=== PATIENT | female | born 1965 | race Caucasian/White ===

== ENCOUNTER 2022-02-18 14:43 | Inpatient (IN) ==
[2022-02-18] MEDS ORDERED: ONDANSETRON 4 MG/2 ML VIAL IV PRN (16:23)
[2022-02-18] MEDS ORDERED: GLUCAGON 1 MG VIAL IM PRN (16:23)
[2022-02-18] MEDS ORDERED: ACETAMINOPHEN 325 MG TABLET PO PRN (16:23)
[2022-02-18] MEDS ORDERED: DEXTROSE 10% 250 ML BAG IV PRN (16:34)
[2022-02-18] MEDS: SODIUM CHLORIDE 0.9% 1,000 ML IV SCH (16:45)
[2022-02-18 16:49] LABS: Hematocrit 30.6 VOL% (35.7-47.0); Hemoglobin 10.9 GM/DL (12.0-16.0); Immature Granulocytes Absolute 0.02 #; Lymphocytes # 0.4 10*3/uL (1.4-4.0); Lymphocytes % 57.6 % (21.3-54.2); Mean Corpuscular HGB Conc 35.6 GM/DL (32-36); Mean Corpuscular Volume 94.2 FL (87-102); Mean Platelet Volume 9.9 FL (9.6-12.0); Monocytes # 0.2 10*3/uL (0.11-0.8); Monocytes % 36.4 % (1.7-12.7); NRBC # 0.12 10*3/uL; Platelet Count 203 T/CUMM (130-400); Red Blood Count 3.25 MC/CUMM (3.8-5.5); Red Cell Distribution Width 18.4 % (9.3-17.3)
[2022-02-18 16:52] LABS: White Blood Count 0.7 T/CUMM (4-12)
[2022-02-18] MEDS: MORPHINE 2 MG/1 ML SYRINGE IV PRN ×2 (17:03→20:58)
[2022-02-18 17:34] LABS: Albumin 1.4 G/DL (3.4-5.0); Bilirubin,Total 9.1 MG/DL (0.20-1.00); Calcium 7.1 MG/DL (8.5-10.1); Osmolality,Calculated 258.9 MOS/KG (273-304); Potassium 4.4 MMOL/L (3.5-5.1)
[2022-02-18] MEDS: INSULIN LISPRO 100 UNIT/ML SUBCUT SCH ×2 (17:54→20:59)
[2022-02-18 18:13] LABS: Lymphocytes 90 % (20-55); Nucleated Red Blood Cells 5 /100 WBC (0-5); Total Cells Counted 100
[2022-02-18 18:14] LABS: Platelet Estimate Normal; Poikilocytosis 1+
[2022-02-18 18:15] LABS: Anisocytosis 1+
[2022-02-18 18:16] LABS: Polychromasia 1+; Target Cells 1+
[2022-02-18] MEDS: PHENOL 1.4% THROAT SPRAY 177 ML BOTTLE PO PRN (19:10)
[2022-02-18] MEDS: ENOXAPARIN 40 MG/0.4 ML SYRINGE SUBCUT SCH (20:54)
[2022-02-18] MEDS ORDERED: DOCUSATE SODIUM 100 MG CAPSULE PO SCH (21:00)
[2022-02-18] MEDS: FILGRASTIM-SNDZ 300 MCG/0.5 ML SYRINGE SUBCUT SCH (21:19)
[2022-02-19] MEDS: SODIUM CHLORIDE 0.9% 1,000 ML IV SCH ×2 (00:17→08:17)
[2022-02-19 02:44] LABS: Bacteria,Urine Occasional /HPF (Few); Mucus,Urine Many /LPF (Occasional); RBC,Urine 1 /HPF (0-4); Squamous Epithelial Cell,Urine Occasional /HPF (0-10); Urine Appearance Clear (Clear); Urine Color Yellow (Yellow); Urine Specific Gravity 1.025 (1.001-1.035); Urine pH 5.5 (4.5-8.0)
[2022-02-19 02:45] LABS: Bilirubin,Urine Large mg/dL (Negative); Blood, Urine Negative (Negative); Glucose,Urine (UA) 100 mg/dL (Negative); Ketones,Urine 15 mg/dL (Negative); Nitrite,Urine Negative (Negative); Protein,Urine Trace mg/dL (Negative); Urine Urobilinogen 0.2 eU/dL (<2.0)
[2022-02-19 04:02] LABS: Basophils % 0.9 % (0.0-0.8); Hematocrit 28.3 VOL% (35.7-47.0); Hemoglobin 9.9 GM/DL (12.0-16.0); Immature Granulocytes Absolute 0.08 #; Lymphocytes # 0.5 10*3/uL (1.4-4.0); Mean Corpuscular Volume 95.6 FL (87-102); Mean Platelet Volume 10.5 FL (9.6-12.0); Monocytes # 0.5 10*3/uL (0.11-0.8); Monocytes % 43.5 % (1.7-12.7); NRBC # 0.32 10*3/uL; Neutrophils % 1.6 % (38.7-73.9); Platelet Count 221 T/CUMM (130-400); Red Blood Count 2.96 MC/CUMM (3.8-5.5); Red Cell Distribution Width 18.9 % (9.3-17.3); White Blood Count 1.2 T/CUMM (4-12)
[2022-02-19 04:17] LABS: Albumin 1.2 G/DL (3.4-5.0); Bilirubin,Total 7.4 MG/DL (0.20-1.00); Calcium 7.1 MG/DL (8.5-10.1); Osmolality,Calculated 258.8 MOS/KG (273-304); Potassium 4.2 MMOL/L (3.5-5.1); Total Protein 4.4 G/DL (6.4-8.2)
[2022-02-19] MEDS: MORPHINE 2 MG/1 ML SYRINGE IV PRN ×6 (04:36→23:47)
[2022-02-19 04:55] LABS: Lymphocytes 71 % (20-55); Nucleated Red Blood Cells 33 /100 WBC (0-5); Platelet Estimate Adequate; Total Cells Counted 100
[2022-02-19 04:57] LABS: Atypical Lymphocytes 1+
[2022-02-19 04:58] LABS: Macrocytosis Slight; Polychromasia Slight; Target Cells Slight
[2022-02-19] MEDS: INSULIN LISPRO 100 UNIT/ML SUBCUT SCH ×4 (07:29→20:41)
[2022-02-19] MEDS: FILGRASTIM-SNDZ 300 MCG/0.5 ML SYRINGE SUBCUT SCH ×2 (08:30→08:54)
[2022-02-19] MEDS: CEFEPIME 1,000 MG in SODIUM CHLORIDE 0.9% 100 ML IV SCH ×3 (08:30→20:38)
[2022-02-19] MEDS ORDERED: ALPELISIB PO SCH (09:00)
[2022-02-19] MEDS: FLUCONAZOLE INJ 200 MG/100 ML PREMIX IV SCH (09:15)
[2022-02-19] MEDS: DEXTROSE 5% NACL 0.9% 1,000 ML IV SCH ×2 (09:50→18:03)
[2022-02-19] MEDS: ENOXAPARIN 40 MG/0.4 ML SYRINGE SUBCUT SCH (20:39)
[2022-02-20] MEDS: CEFEPIME 1,000 MG in SODIUM CHLORIDE 0.9% 100 ML IV SCH ×4 (02:05→20:51)
[2022-02-20] MEDS: DEXTROSE 5% NACL 0.9% 1,000 ML IV SCH ×3 (02:05→17:24)
[2022-02-20] MEDS: MORPHINE 2 MG/1 ML SYRINGE IV PRN ×3 (03:46→17:29)
[2022-02-20] MEDS ORDERED: MYLANTA/LIDO VISC 2:1 300 ML BOTTLE SWISH/SWAL PRN (03:53)
[2022-02-20] MEDS ORDERED: HYDROmorphone 1 MG/1 ML SYRINGE IV PRN (04:06)
[2022-02-20 04:30] LABS: Basophils % 1.2 % (0.0-0.8); Eosinophils % 0.3 % (0.00-10.9); Hematocrit 27.1 VOL% (35.7-47.0); Hemoglobin 9.4 GM/DL (12.0-16.0); Immature Granulocytes % 13.3 %; Immature Granulocytes Absolute 0.46 #; Lymphocytes # 0.9 10*3/uL (1.4-4.0); Lymphocytes % 25.4 % (21.3-54.2); Mean Corpuscular HGB Conc 34.7 GM/DL (32-36); Mean Corpuscular Volume 96.8 FL (87-102); Mean Platelet Volume 10.1 FL (9.6-12.0); Monocytes # 1.3 10*3/uL (0.11-0.8); Monocytes % 36.7 % (1.7-12.7); NRBC # 1.33 10*3/uL; Neutrophils % 23.1 % (38.7-73.9); Platelet Count 187 T/CUMM (130-400); Red Cell Distribution Width 19.4 % (9.3-17.3); White Blood Count 3.5 T/CUMM (4-12)
[2022-02-20 04:55] LABS: Bilirubin,Total 7.1 MG/DL (0.20-1.00); Osmolality,Calculated 271.2 MOS/KG (273-304); Potassium 4.1 MMOL/L (3.5-5.1)
[2022-02-20 04:58] LABS: Atypical Lymphocytes 1+; Band Neutrophils 4 % (0-10); Eosinophils 1 % (0-10); Lymphocytes 58 % (20-55); Myelocytes 2 %; Nucleated Red Blood Cells 79 /100 WBC (0-5); Total Cells Counted 100
[2022-02-20 04:59] LABS: Platelet Estimate Adequate
[2022-02-20 05:01] LABS: Target Cells Slight
[2022-02-20] MEDS: INSULIN LISPRO 100 UNIT/ML SUBCUT SCH ×4 (08:34→23:54)
[2022-02-20] MEDS: FILGRASTIM-SNDZ 300 MCG/0.5 ML SYRINGE SUBCUT SCH ×2 (08:35→09:32)
[2022-02-20] MEDS: HYDROmorphone 1 MG/1 ML SYRINGE IV PRN ×2 (08:36→20:58)
[2022-02-20] MEDS: FLUCONAZOLE INJ 200 MG/100 ML PREMIX IV SCH (09:32)
[2022-02-20] MEDS: ENOXAPARIN 40 MG/0.4 ML SYRINGE SUBCUT SCH (20:51)
[2022-02-21] MEDS: CEFEPIME 1,000 MG in SODIUM CHLORIDE 0.9% 100 ML IV SCH (04:41)
[2022-02-21 05:09] LABS: Basophils % 0.2 % (0.0-0.8); Eosinophils % 0.1 % (0.00-10.9); Hematocrit 29.7 VOL% (35.7-47.0); Hemoglobin 9.8 GM/DL (12.0-16.0); Immature Granulocytes % 17.2 %; Immature Granulocytes Absolute 2.91 #; Lymphocytes # 1.8 10*3/uL (1.4-4.0); Lymphocytes % 10.3 % (21.3-54.2); Mean Corpuscular Volume 100.7 FL (87-102); Monocytes # 2.2 10*3/uL (0.11-0.8); Monocytes % 13.2 % (1.7-12.7); NRBC # 3.06 10*3/uL; Platelet Count 171 T/CUMM (130-400); Red Blood Count 2.95 MC/CUMM (3.8-5.5); Red Cell Distribution Width 20.4 % (9.3-17.3); White Blood Count 16.9 T/CUMM (4-12)
[2022-02-21 05:28] LABS: Albumin 0.9 G/DL (3.4-5.0); Bilirubin,Total 7.8 MG/DL (0.20-1.00); Calcium 6.4 MG/DL (8.5-10.1); Osmolality,Calculated 281.4 MOS/KG (273-304); Potassium 4.2 MMOL/L (3.5-5.1); Total Protein 3.8 G/DL (6.4-8.2)
[2022-02-21 05:31] LABS: Calcium 6.8 MG/DL (8.5-10.1); Osmolality,Calculated 280.5 MOS/KG (273-304); Potassium 4.3 MMOL/L (3.5-5.1)
[2022-02-21 05:34] LABS: Band Neutrophils 13 % (0-10); Lymphocytes 16 % (20-55); Metamyelocytes 3 %; Myelocytes 11 %; Nucleated Red Blood Cells 37 /100 WBC (0-5); Platelet Estimate Adequate; Total Cells Counted 100
[2022-02-21 05:35] LABS: Atypical Lymphocytes Few; Macrocytosis Slight; Polychromasia Slight
[2022-02-21] MEDS: DEXTROSE 5% NACL 0.9% 1,000 ML IV SCH ×3 (06:14→17:57)
[2022-02-21] MEDS: INSULIN LISPRO 100 UNIT/ML SUBCUT SCH ×4 (08:56→21:08)
[2022-02-21] MEDS: FLUCONAZOLE INJ 200 MG/100 ML PREMIX IV SCH (08:57)
[2022-02-21] MEDS: HYDROmorphone 1 MG/1 ML SYRINGE IV PRN ×3 (08:59→16:32)
[2022-02-21] MEDS: ENOXAPARIN 40 MG/0.4 ML SYRINGE SUBCUT SCH (21:09)
[2022-02-21] MEDS: MORPHINE 2 MG/1 ML SYRINGE IV PRN (21:09)
[2022-02-22] MEDS: DEXTROSE 5% NACL 0.9% 1,000 ML IV SCH ×4 (02:00→20:08)
[2022-02-22] MEDS: HYDROmorphone 1 MG/1 ML SYRINGE IV PRN ×3 (02:30→23:54)
[2022-02-22 05:20] LABS: Basophils # 0.1 10*3/uL (0.0-0.2); Basophils % 0.2 % (0.0-0.8); Eosinophils % 0.1 % (0.00-10.9); Hematocrit 30.4 VOL% (35.7-47.0); Hemoglobin 9.9 GM/DL (12.0-16.0); Immature Granulocytes % 14.8 %; Immature Granulocytes Absolute 4.57 #; Lymphocytes # 2.4 10*3/uL (1.4-4.0); Lymphocytes % 7.7 % (21.3-54.2); Mean Corpuscular HGB Conc 32.6 GM/DL (32-36); Mean Corpuscular Volume 100.7 FL (87-102); Mean Platelet Volume 11.8 FL (9.6-12.0); Monocytes # 3.4 10*3/uL (0.11-0.8); NRBC # 2.55 10*3/uL; Neutrophils % 66.2 % (38.7-73.9); Platelet Count 134 T/CUMM (130-400); Red Blood Count 3.02 MC/CUMM (3.8-5.5); Red Cell Distribution Width 20.7 % (9.3-17.3)
[2022-02-22 05:35] LABS: Calcium 7.2 MG/DL (8.5-10.1); Osmolality,Calculated 285.3 MOS/KG (273-304); Potassium 4.8 MMOL/L (3.5-5.1)
[2022-02-22 05:49] LABS: Lymphocytes 50 % (20-55); Nucleated Red Blood Cells 7 /100 WBC (0-5); Platelet Estimate Normal; Reactive Lymphocytes 2+; Total Cells Counted 100
[2022-02-22 06:05] LABS: Bilirubin,Total 7.8 MG/DL (0.20-1.00); Calcium 6.7 MG/DL (8.5-10.1); Potassium 4.8 MMOL/L (3.5-5.1); Total Protein 3.6 G/DL (6.4-8.2)
[2022-02-22] MEDS: MORPHINE 2 MG/1 ML SYRINGE IV PRN ×3 (06:08→16:20)
[2022-02-22] MEDS: INSULIN LISPRO 100 UNIT/ML SUBCUT SCH ×4 (08:10→20:00)
[2022-02-22] MEDS: FLUCONAZOLE INJ 200 MG/100 ML PREMIX IV SCH (08:56)
[2022-02-22] MEDS: ENOXAPARIN 40 MG/0.4 ML SYRINGE SUBCUT SCH (20:09)
[2022-02-23] MEDS: DEXTROSE 5% NACL 0.9% 1,000 ML IV SCH ×2 (03:58→17:39)
[2022-02-23] MEDS: MORPHINE 2 MG/1 ML SYRINGE IV PRN (04:36)
[2022-02-23 05:39] LABS: Basophils # 0.1 10*3/uL (0.0-0.2); Basophils % 0.1 % (0.0-0.8); Hemoglobin 10.2 GM/DL (12.0-16.0); Immature Granulocytes % 18.5 %; Immature Granulocytes Absolute 7.72 #; Lymphocytes # 2.7 10*3/uL (1.4-4.0); Lymphocytes % 6.6 % (21.3-54.2); Mean Corpuscular HGB Conc 32.9 GM/DL (32-36); Mean Corpuscular Volume 99.7 FL (87-102); Mean Platelet Volume 11.4 FL (9.6-12.0); Monocytes # 3.8 10*3/uL (0.11-0.8); Monocytes % 9.2 % (1.7-12.7); NRBC # 2.18 10*3/uL; Neutrophils % 65.6 % (38.7-73.9); Platelet Count 114 T/CUMM (130-400); Red Blood Count 3.11 MC/CUMM (3.8-5.5)
[2022-02-23 05:41] LABS: White Blood Count 41.7 T/CUMM (4-12)
[2022-02-23 06:01] LABS: Calcium 7.2 MG/DL (8.5-10.1); Osmolality,Calculated 290.1 MOS/KG (273-304); Potassium 4.2 MMOL/L (3.5-5.1)
[2022-02-23 06:16] LABS: Albumin 0.9 G/DL (3.4-5.0); Bilirubin,Total 7.8 MG/DL (0.20-1.00); Calcium 7.1 MG/DL (8.5-10.1); Osmolality,Calculated 288.3 MOS/KG (273-304); Potassium 4.2 MMOL/L (3.5-5.1); Total Protein 4.1 G/DL (6.4-8.2)
[2022-02-23 06:43] LABS: Lymphocytes 27 % (20-55); Nucleated Red Blood Cells 8 /100 WBC (0-5); Platelet Estimate Normal; Total Cells Counted 100
[2022-02-23] MEDS: HYDROmorphone 1 MG/1 ML SYRINGE IV PRN ×2 (08:37→20:40)
[2022-02-23] MEDS: INSULIN LISPRO 100 UNIT/ML SUBCUT SCH ×4 (08:37→20:40)
[2022-02-23] MEDS: FLUCONAZOLE INJ 200 MG/100 ML PREMIX IV SCH (08:38)
[2022-02-23] MEDS: ENOXAPARIN 40 MG/0.4 ML SYRINGE SUBCUT SCH (20:40)
[2022-02-24] MEDS: HYDROmorphone 1 MG/1 ML SYRINGE IV PRN (05:20)
[2022-02-24 05:51] LABS: Basophils # 0.1 10*3/uL (0.0-0.2); Basophils % 0.1 % (0.0-0.8); Hematocrit 31.5 VOL% (35.7-47.0); Hemoglobin 10.4 GM/DL (12.0-16.0); Immature Granulocytes % 21.6 %; Lymphocytes % 6.6 % (21.3-54.2); Mean Corpuscular Volume 99.4 FL (87-102); Monocytes # 3.3 10*3/uL (0.11-0.8); Monocytes % 7.4 % (1.7-12.7); Neutrophils % 64.3 % (38.7-73.9); Platelet Count 98 T/CUMM (130-400); Red Blood Count 3.17 MC/CUMM (3.8-5.5); Red Cell Distribution Width 21.2 % (9.3-17.3)
[2022-02-24 06:14] LABS: Bilirubin,Total 7.8 MG/DL (0.20-1.00); Calcium 7.1 MG/DL (8.5-10.1); Potassium 4.8 MMOL/L (3.5-5.1); Total Protein 4.1 G/DL (6.4-8.2)
[2022-02-24 06:34] LABS: Lymphocytes 29 % (20-55); Metamyelocytes 1 %; Myelocytes 5 %; Nucleated Red Blood Cells 2 /100 WBC (0-5); Total Cells Counted 100
[2022-02-24 06:35] LABS: Platelet Estimate Decreased
[2022-02-24] MEDS: DEXTROSE 5% NACL 0.45% 1,000 ML IV SCH ×2 (08:38→16:28)
[2022-02-24] MEDS: MORPHINE 2 MG/1 ML SYRINGE IV PRN (08:38)
[2022-02-24] MEDS: INSULIN LISPRO 100 UNIT/ML SUBCUT SCH ×4 (08:39→20:37)
[2022-02-24] MEDS: FLUCONAZOLE INJ 200 MG/100 ML PREMIX IV SCH (12:09)
[2022-02-24] MEDS: ceFAZolin 2,000 MG/50 ML DUPLEX IV SCH (17:52)
[2022-02-24] MEDS: ENOXAPARIN 40 MG/0.4 ML SYRINGE SUBCUT SCH (20:41)
[2022-02-25] MEDS: ceFAZolin 2,000 MG/50 ML DUPLEX IV SCH ×4 (00:29→09:05)
[2022-02-25] MEDS: MORPHINE 2 MG/1 ML SYRINGE IV PRN (01:10)
[2022-02-25 06:00] LABS: Basophils # 0.1 10*3/uL (0.0-0.2); Basophils % 0.1 % (0.0-0.8); Eosinophils # 0.1 10*3/uL (0.0-0.87); Eosinophils % 0.1 % (0.00-10.9); Hematocrit 29.8 VOL% (35.7-47.0); Hemoglobin 10.1 GM/DL (12.0-16.0); Immature Granulocytes % 24.2 %; Immature Granulocytes Absolute 12.31 #; Lymphocytes # 3.8 10*3/uL (1.4-4.0); Lymphocytes % 7.5 % (21.3-54.2); Mean Corpuscular HGB Conc 33.9 GM/DL (32-36); Mean Corpuscular Volume 98.3 FL (87-102); Mean Platelet Volume 11.3 FL (9.6-12.0); Monocytes # 2.9 10*3/uL (0.11-0.8); Monocytes % 5.6 % (1.7-12.7); NRBC # 3.21 10*3/uL; Neutrophils % 62.5 % (38.7-73.9); Platelet Count 100 T/CUMM (130-400); Red Blood Count 3.03 MC/CUMM (3.8-5.5); Red Cell Distribution Width 21.4 % (9.3-17.3)
[2022-02-25 06:15] LABS: Bilirubin,Total 7.7 MG/DL (0.20-1.00); Calcium 7.3 MG/DL (8.5-10.1); Osmolality,Calculated 295.1 MOS/KG (273-304); Potassium 4.5 MMOL/L (3.5-5.1)
[2022-02-25 06:22] LABS: Band Neutrophils 3 % (0-10); Lymphocytes 5 % (20-55); Myelocytes 6 %; Nucleated Red Blood Cells 10 /100 WBC (0-5); Total Cells Counted 100
[2022-02-25] MEDS: INSULIN LISPRO 100 UNIT/ML SUBCUT SCH (07:51)
[2022-02-25] MEDS: PHENOL 1.4% THROAT SPRAY 177 ML BOTTLE PO PRN (09:01)
[2022-02-25] MEDS: FLUCONAZOLE INJ 200 MG/100 ML PREMIX IV SCH (09:05)
[2022-02-25] MEDS: HYDROmorphone 1 MG/1 ML SYRINGE IV PRN (09:12)
[2022-02-25] MEDS ORDERED: CLOTRIMAZOLE 10 MG TROCHE PO SCH (10:00)
[2022-02-25 11:01] VITALS: BP 106/72
== END 2022-02-25 10:08 | disposition home health service (06) | DRG 809 ==
LOC: N.2W → SUATTDRO 15:07 → N.TELES 02-23 15:53
PROVIDERS: ADMIT Internal Medicine; ATTEND Internal Medicine Geriatric Medicine

== ENCOUNTER 2022-02-26 19:06 | Inpatient (IN) ==
[2022-02-26] MEDS ORDERED: SODIUM CHLORIDE 0.9% 1,000 ML IV STA ×2 (19:37→20:54)
[2022-02-26 20:31] LABS: Basophils # 0.1 10*3/uL (0.0-0.2); Basophils % 0.2 % (0.0-0.8); Hematocrit 31.1 VOL% (35.7-47.0); Hemoglobin 10.4 GM/DL (12.0-16.0); Immature Granulocytes Absolute 8.54 #; Lymphocytes # 3.6 10*3/uL (1.4-4.0); Lymphocytes % 7.2 % (21.3-54.2); Mean Corpuscular HGB Conc 33.4 GM/DL (32-36); Monocytes # 2.1 10*3/uL (0.11-0.8); Monocytes % 4.1 % (1.7-12.7); NRBC # 5.98 10*3/uL; Neutrophils % 71.5 % (38.7-73.9); Platelet Count 137 T/CUMM (130-400); Red Blood Count 3.14 MC/CUMM (3.8-5.5); Red Cell Distribution Width 22.2 % (9.3-17.3)
[2022-02-26 20:33] LABS: White Blood Count 50.2 T/CUMM (4-12)
[2022-02-26] MEDS ORDERED: NOREPINEPHRINE 8 MG in SODIUM CHLORIDE 0.9% 242 ML IV PRN (20:43)
[2022-02-26 20:47] LABS: Ammonia < 10 UMOL/L (11-32)
[2022-02-26] MEDS ORDERED: NOREPINEPHRINE 4 MG/4 ML VIAL IV ONE (20:47)
[2022-02-26 20:50] LABS: Urine Color Amber (Yellow)
[2022-02-26 20:51] LABS: INR 2.8; PT Patient Result 28.7 SECS (10.1-12.1); Partial Thromboplastin Time 70.3 SECS (23.7-32.9)
[2022-02-26 20:51] LABS: Bilirubin,Urine Large mg/dL (Negative); Blood, Urine Trace mg/dL (Negative); Glucose,Urine (UA) 100 mg/dL (Negative); Ketones,Urine Trace mg/dL (Negative); Nitrite,Urine Negative (Negative); Protein,Urine 30 mg/dL (Negative); Urine Appearance Clear (Clear); Urine Urobilinogen < 2.0 eU/dL (<2.0); Urine pH 5.5 (4.5-8.0)
[2022-02-26] MEDS ORDERED: PIPERACILLIN/TAZOBACTAM 3,375 MG in SODIUM CHLORIDE 0.9% 100 ML IV STA (20:51)
[2022-02-26 20:52] LABS: Alanine Aminotransferase 70 U/L (13-56); Albumin 1.1 G/DL (3.4-5.0); Alkaline Phosphatase 770 U/L (45-117); Aspartate Amino Transferase 303 U/L (0-37); Blood Urea Nitrogen 68 MG/DL (7-18); Calcium 7.1 MG/DL (8.5-10.1); Carbon Dioxide 12 MMOL/L (21-32); Chloride 115 MMOL/L (98-107); Osmolality,Calculated 293.5 MOS/KG (273-304); Potassium 5.8 MMOL/L (3.5-5.1); Sodium 139 MMOL/L (136-145); Total Protein 3.9 G/DL (6.4-8.2)
[2022-02-26 20:53] LABS: Band Neutrophils 5 % (0-10); Lactic Acid 8.2 MMOL/L (0.4-2.0); Lymphocytes 17 % (20-55); Metamyelocytes 4 %; Nucleated Red Blood Cells 10 /100 WBC (0-5)
[2022-02-26 20:54] LABS: Macrocytosis Slight; Platelet Estimate Decreased; Polychromasia Slight
[2022-02-26] MEDS ORDERED: DEXTROSE 50% 25 GM/50 ML VIAL IV STA (20:54)
[2022-02-26 20:55] LABS: Granular Casts,Urine 20 /LPF (0-1); Hyaline Casts,Urine 61 /LPF (0-3); Mucus,Urine Occasional /LPF (Occasional); RBC,Urine 2 /HPF (0-4); Squamous Epithelial Cell,Urine Occasional /HPF (0-10)
[2022-02-26 20:55] LABS: Acanthocytes 1+; Glucose 37 MG/DL (74-106); Total Cells Counted 100
[2022-02-26] MEDS ORDERED: DEXTROSE 50% 25 GM/50 ML SYRINGE IV ONE (20:55)
[2022-02-26] MEDS: NOREPINEPHRINE 8 MG in SODIUM CHLORIDE 0.9% 242 ML IV PRN (21:00)
[2022-02-26] MEDS ORDERED: ALBUTEROL 2.5 MG/3 ML NEB RESP TX PRN (21:49)
[2022-02-26] MEDS ORDERED: ONDANSETRON 4 MG/2 ML VIAL IV PRN (21:50)
[2022-02-26] MEDS: MORPHINE 2 MG/1 ML SYRINGE IV PRN (22:15)
[2022-02-26] MEDS ORDERED: DEXTROSE 5% NACL 0.9% 1,000 ML IV SCH (22:30)
[2022-02-26] MEDS: FAMOTIDINE 20 MG/2 ML VIAL IV SCH (23:27)
[2022-02-26 23:33] LABS: Arterial Base Excess iSTAT -15 MMOL/L (-2.5-2.5); Arterial Bicarbonate iSTAT 8.6 MMOL/L (20-26); Arterial O2 Saturation iSTAT 93 % (95-100); Arterial PCO2 iSTAT 16 MM HG (35-48); Arterial PO2 iSTAT 69 MM HG (80-95); Arterial Total CO2 iSTAT 9 MMO/L (23-27); Arterial pH iSTAT 7.333 (7.35-7.45)
[2022-02-27] MEDS: MORPHINE 2 MG/1 ML SYRINGE IV PRN ×7 (00:07→23:10)
[2022-02-27] MEDS: SODIUM BICARB INJ 100 MEQ in DEXTROSE 5% 1,000 ML IV SCH ×3 (00:21→11:13)
[2022-02-27] MEDS: CLOTRIMAZOLE 10 MG TROCHE PO SCH ×4 (02:22→20:25)
[2022-02-27] MEDS: FLUCONAZOLE INJ 200 MG/100 ML PREMIX IV SCH (03:10)
[2022-02-27] MEDS: HYDROCORTISONE 100 MG VIAL IV SCH ×3 (03:10→18:12)
[2022-02-27] MEDS: HYDROmorphone 1 MG/1 ML SYRINGE IV PRN ×2 (03:57→15:32)
[2022-02-27] MEDS: NOREPINEPHRINE 8 MG in SODIUM CHLORIDE 0.9% 242 ML IV PRN ×2 (03:57→13:00)
[2022-02-27 04:57] LABS: Basophils # 0.2 10*3/uL (0.0-0.2); Basophils % 0.3 % (0.0-0.8); Hematocrit 31.3 VOL% (35.7-47.0); Hemoglobin 10.4 GM/DL (12.0-16.0); Immature Granulocytes % 15.3 %; Immature Granulocytes Absolute 10.08 #; Lymphocytes % 7.6 % (21.3-54.2); Mean Corpuscular HGB Conc 33.2 GM/DL (32-36); Mean Corpuscular Volume 99.7 FL (87-102); Mean Platelet Volume 12.3 FL (9.6-12.0); Monocytes # 2.1 10*3/uL (0.11-0.8); Monocytes % 3.2 % (1.7-12.7); NRBC # 7.79 10*3/uL; Neutrophils % 73.6 % (38.7-73.9); Platelet Count 166 T/CUMM (130-400); Red Blood Count 3.14 MC/CUMM (3.8-5.5); Red Cell Distribution Width 22.5 % (9.3-17.3)
[2022-02-27 05:01] LABS: White Blood Count 66.1 T/CUMM (4-12)
[2022-02-27 05:14] LABS: Bilirubin,Total 8.8 MG/DL (0.20-1.00); Calcium 6.6 MG/DL (8.5-10.1); Osmolality,Calculated 300.4 MOS/KG (273-304); Potassium 5.5 MMOL/L (3.5-5.1)
[2022-02-27 05:28] LABS: Band Neutrophils 3 % (0-10); Lymphocytes 7 % (20-55); Nucleated Red Blood Cells 13 /100 WBC (0-5); Platelet Estimate Adequate; Total Cells Counted 100
[2022-02-27] MEDS: PIPERACILLIN/TAZOBACTAM 3,375 MG in SODIUM CHLORIDE 0.9% 100 ML IV SCH ×3 (06:12→21:11)
[2022-02-27] MEDS: FAMOTIDINE 20 MG/2 ML VIAL IV SCH ×2 (08:36→20:25)
[2022-02-27] MEDS ORDERED: TISSUE ADHESIVE 1 EACH APPLICATOR TOP ONE (08:47)
[2022-02-27] MEDS: INSULIN LISPRO 100 UNIT/ML SUBCUT SCH ×3 (15:34→23:27)
[2022-02-27] MEDS: SODIUM BICARB INJ 100 MEQ in STERILE WATER INJ 1,000 ML IV SCH (17:24)
[2022-02-27 19:15] VITALS: BP 79/44
[2022-02-27] MEDS: DIAZEPAM 10 MG/2 ML SYRINGE IV PRN (23:09)
[2022-02-28] MEDS: MORPHINE 2 MG/1 ML SYRINGE IV PRN ×2 (00:48→02:14)
[2022-02-28] MEDS: CLOTRIMAZOLE 10 MG TROCHE PO SCH (01:41)
[2022-02-28] MEDS: HYDROCORTISONE 100 MG VIAL IV SCH (02:02)
[2022-02-28] MEDS: FLUCONAZOLE INJ 200 MG/100 ML PREMIX IV SCH (02:02)
[2022-02-28] MEDS: DIAZEPAM 10 MG/2 ML SYRINGE IV PRN (02:14)
[2022-02-28] MEDS: NOREPINEPHRINE 8 MG in SODIUM CHLORIDE 0.9% 242 ML IV PRN (02:15)
[2022-02-28] MEDS ORDERED: DEXTROSE 50% 25 GM/50 ML SYRINGE IV ONE ×2 (03:18→04:00)
[2022-02-28] MEDS: INSULIN LISPRO 100 UNIT/ML SUBCUT SCH (03:57)
[2022-02-28] MEDS ORDERED: DEXTROSE 10% 250 ML BAG IV ONE (04:00)
[2022-02-28] MEDS: SODIUM BICARB INJ 100 MEQ in STERILE WATER INJ 1,000 ML IV SCH (04:12)
== END 2022-02-28 05:13 | disposition expired | DRG 871 ==
LOC: EDUNIT# → EDBD → N.ED 19:06 → N.EDINP 21:49 → N.ICU 22:09
PROVIDERS: ADMIT Internal Medicine; ATTEND Internal Medicine